=== PATIENT | male | born 1970 | race African-American/Black ===

== ENCOUNTER 2024-02-04 09:12 | Emergency (ER) | payer OTHER, SELFPAY ==
--- NOTE | ~2024-02-04 | CT_ITS ---
EXAMINATION: CT ANGIOGRAM OF THE CHEST WITH AND WITHOUT CONTRAST (CT PULMONARY ANGIOGRAM FOR PE) CLINICAL INFORMATION: Atrial fibrillation. Pulmonary embolism. COMPARISON: Chest radiograph from 02/04/2024. TECHNIQUE: Prior to contrast administration, noncontrast localization images were obtained. Subsequently, multidetector volumetric imaging was performed from the thoracic inlet to below the diaphragms following the administration of 65 mL Omnipaque 350 intravenous contrast. No contrast reaction reported. Sagittal, coronal, and MIP oblique sagittal reformatted images were obtained on the CT workstation, uploaded to PACS, and reviewed. This CT examination was performed using dose optimization techniques as appropriate, variously including the following: *Automated exposure control. *Adjustment of mA and/or kV according to patient size (this includes techniques or standardized protocols for targeted exams where dose is matched to indication/reason for exam; i.e. extremities or head). *Use of iterative reconstruction technique. DLP: 364 mGy-cm FINDINGS: QUALITY OF STUDY/CONTRAST BOLUS: Satisfactory. PULMONARY ARTERIES: No central or segmental pulmonary emboli. THORACIC AORTA: The thoracic aorta is of normal contour and caliber. No evidence of thoracic aortic aneurysm or dissection. LUNG: Mild bilateral dependent atelectasis. No focal consolidation, nodules, or masses. PLEURA: No pleural effusion or pneumothorax. MEDIASTINUM: Normal heart size. No pericardial effusion. No hilar or mediastinal lymphadenopathy. No evidence of septal bowing or right heart strain. Coronary artery calcifications: Absent. CHEST WALL/AXILLA: No axillary or internal mammary lymphadenopathy. 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 No reflux of contrast into the hepatic veins to suggest elevated right heart pressures. CT/CT angio chest PE protocol IMPRESSION: 1. No evidence of pulmonary embolism. 2. No demonstrated acute pulmonary abnormalities. VTE: negative. Electronically signed by: Juan Carlos Matthews DO 02/04/2024 02:06 PM EDT
--- NOTE | ~2024-02-04 | XR_ITS ---
EXAMINATION: XR CHEST CLINICAL INFORMATION: Near syncope. Chest pain. COMPARISON: None available. TECHNIQUE: Frontal view of the chest was obtained. FINDINGS: The lungs are adequately expanded. Mild asymmetric elevation of the right hemidiaphragm. No evidence of focal consolidation, pleural effusion, pulmonary edema, or pneumothorax. The cardiomediastinal silhouette is within normal limits. No acute osseous abnormalities. XR/XR chest 1V IMPRESSION: No radiographically evident acute pulmonary abnormalities. Electronically signed by: Juan Carlos Matthews DO 02/04/2024 12:18 PM EDT RP
--- NOTE | 2024-02-04 09:13 | ECG_ITS ---
Test Reason : near syncope Blood Pressure : / mmHG Vent. Rate : 120 BPM Atrial Rate : 000 BPM P-R Int : 000 ms QRS Dur : 070 ms QT Int : 318 ms P-R-T Axes : 000 029 010 degrees QTc Int : 449 ms Atrial fibrillation with rapid ventricular response Nonspecific T wave abnormality Abnormal ECG No previous ECGs available Referred By: Chrissie Ceballos Electronically Signed By:FRAN MILLER MD
[2024-02-04 09:19] VITALS: BP 100/58; PULSE 76; RESP 14; TEMP 36.5; O2SAT 100; BMI 32.5
[2024-02-04 09:55] LABS: MANUAL DIFF FLAG NO
[2024-02-04 09:59] LABS: Basophils Absolute Auto 0.1 X10*3/uL (0.0-0.2); Basophils Percent Auto 0.7 % (0-2); Eosinophils Absolute Auto 0.2 X10*3/uL (0.0-0.4); Eosinophils Percent Auto 2.3 % (0-4); Hematocrit 50.7 % (42.0-52.0); Hemoglobin 17.5 g/dl (14.0-18.0); Imm Gran Abs Auto 0.02 X10*3/uL (0.00-0.03); Imm Gran Pct Auto 0.2 % (0.0-0.4); Lymphocytes Absolute Auto 1.9 X10*3/uL (1.2-4.9); Lymphocytes Percent Auto 23.1 % (20-40); Mean Corpuscular HGB Conc 34.5 g/dl (31.0-36.0); Mean Corpuscular Hemoglobin 30.9 pg (27.0-33.0); Mean Corpuscular Volume 89.6 fL (80.0-98.0); Mean Platelet Volume 9.4 fL (9.4-12.4); Monocytes Absolute Auto 0.9 X10*3/uL (0.1-1.2); Monocytes Percent Auto 11.1 % (2-11); Neutrophils Absolute Auto 5.3 x10*3/uL (2.0-8.3); Neutrophils Percent Auto 62.6 % (45-73); Platelet Count 243 X10*3/uL (160-400); Red Blood Count 5.66 X10*6/uL (4.60-5.80); Red Cell Distribution Width 12.9 % (11.0-16.0); White Blood Count 8.4 X10*3/uL (4.8-10.8)
[2024-02-04 10:03] LABS: Appearance Urine Cloudy; Color Urine Yellow; Glucose Urine UA Negative (Negative); Leukocyte Esterase Urine Negative (Negative); Nitrite Urine Negative (Negative); PH 5.5 (5.0-9.0); Specific Gravity - Urine >= 1.030 (1.005-1.025); Urine Blood Negative (Negative); Urine Ketones Negative (Negative); Urine Protein Trace mg/dL (Neg-Trace)
[2024-02-04 10:06] VITALS: PULSE 126
[2024-02-04 10:07] LABS: Prothrombin Time 11.2 SEC (10.9-12.4)
--- NOTE | 2024-02-04 10:09 | PC.NURSE ---
patient a&ox3, iv inserted, labs previously drawn, pt states he has 3/10 chest discomfort as well as dizziness, ekg performed, therapist's assistant applied- pt noted to be in afib and states he has no history of afib, cxr performed, pt denies sob/nausea. neuros intact, call garcia within reach, awaiting provider will continue plan of care
[2024-02-04 10:16] LABS: Alanine Aminotransferase 51 U/L (0-40); Albumin Level 4.5 g/dL (3.5-5.0); Alkaline Phosphatase 56 U/L (39-117); Anion Gap 14 (12-20); Aspartate Amino Transferase 40 U/L (5-37); Bilirubin Total 0.6 mg/dL (0.0-1.0); Blood Urea Nitrogen 31 mg/dL (9-16); Calcium 9.8 mg/dL (8.4-10.2); Carbon Dioxide 22 mmol/L (22-29); Chloride 109 mmol/L (96-108); Creatinine Clr Calc Pharmacy 71.3; Estimated Glomerular Filt Rate 47; Glucose Random 98 mg/dL (60-115); Magnesium 2.3 mg/dL (1.6-2.6); Potassium 3.6 mmol/L (3.3-5.1); Sodium 141 mmol/L (135-145); Total Protein 7.8 g/dL (6.5-8.0)
--- NOTE | 2024-02-04 10:18 | ED.DIZZY ---
HPI - Dizziness General Chief Complaint: Dizziness Stated Complaint: fainted Time Seen by Provider: 02/04/24 09:45 Source: patient Mode of arrival: ambulatory Limitations: no limitations History of Present Illness ED Provider: CESILIA PIZARRO PA-C HPI Narrative: 53 year old male with no significant pmhx presents to the ED today as an outpatient response for evaluation of syncopal episode. Patient is currently training as an RN at [employer], reports that while seated he began feeling light headed, diaphoretic and felt his vision going black. he was able to lower himself to the ground before he lost consciousness. Outpatient response was called. Patient was transported to the ED for further evaluation. In ED, patient states his vision changes have resolved however he still feels light headed with chest discomfort/ racing heart. He denies any medical history (specifically afib) and is not currently prescribed any medications. Not on anticoagulation. He does admit that he has been experiencing these symptoms on/ off for the last few days. Denies recent travel or long car rides. Denies headache, chest pain, sob, wheezing, cough, hemoptysis, calf pain/ swelling. Related Data Previous Rx's ?Medication ?Instructions ?Recorded apixaban 5 mg tablet (Eliquis) 5 mg PO BID 30 days #60 tabs 02/04/24 metoprolol succinate 50 mg 50 mg PO DAILY 30 days #30 tabs 02/04/24 tablet,extended release 24 hr (Toprol XL) Allergies Allergy/AdvReac Type Severity Reaction Status Date / Time No Known Allergies Allergy Verified 02/04/24 09:20 Review of Systems Review of Systems: Constitutional: No fever, chills, fatigue, night sweats, weight changes ENT/Mouth: No ear pain, hearing loss, nasal congestion, sinus pain, rhinorrhea, sore throat Eyes: No eye pain, swelling, redness, vision changes, discharge Cardio: No IQBAL, orthopnea, peripheral edema, +chest discomfort, +palpitations Pulm: No SOB, cough, sputum, wheezing, dyspnea, hemoptysis GI: No nausea, vomiting, hematemesis, abdominal pain, diarrhea, constipation, hematochezia, melena : No irregular bleeding, dysuria, frequency, urgency, hesitancy, hematuria, flank pain, urinary flow changes, urinary incontinence or retention MSK: No back pain, neck pain, joint pain, myalgias Skin: No lesions, rashes Neuro: No weakness, numbness, paresthesias, LOC, dizziness, headache, +light headed Psych: No anxiety/panic, depression, SI/HI, AH/VH All other systems reviewed and are negative. ON LICENSE OF [facility] Past Medical History Attestation statement: The following information was validated with the patient. Source: old records reviewed and nursing notes reviewed Medical History Head trauma Physical Exam Vital Signs: Vital Signs: Last Vital Signs Temp 98.9 F 02/04/24 15:00 Pulse 91 02/04/24 15:00 Resp 20 02/04/24 15:00 BP 131/89 02/04/24 15:00 Pulse Ox 99 02/04/24 15:00 O2 Del Method Room Air 02/04/24 15:00 BMI result Body Mass Index 32.5 tachy to 120's, vitals otherwise wnl General: Well appearing, in no acute distress. Skin: Warm, dry, intact. No rashes or lesions. Head: Normocephalic, atraumatic. EENT: Hearing is intact b/l. Conjunctiva clear. PERRLA. Moist mucous membranes.? Neck: Supple without LAD. FROM. Trachea midline.? Cardiac: Chest wall symmetric. irregularly irregular rate/rhythm. No MRG. No JVD. Lungs: Normal respiratory effort without accessory muscle use. CTA bilaterally. Abdomen: Soft, non-tender, non-distended. No rebound tenderness or guarding. Back: No midline spinous or paraspinal tenderness. No step off deformity. Ext: Upper and lower extremities atraumatic, without tenderness, deformity, swelling or erythema. Full ROM throughout. no calf tenderness b/l. Neuro: AOx3. Normal speech. Ambulating with steady gait. Psych: Appropriate mood and affect. Responds appropriately to questions. Course Course Course Narrative: 1000 -- patient noted to be in AFib with RVR, rate of 120 beats per minute, QT 318, QTC 449. This is new onset AFib. Patient is not anticoagulated. I did reach out to on-call refrigeration operator, Dr. Rock, who after reviewing case is recommending lopressor and IV mag. Patient to be moved to main ED bed for cardiac monitoring. labs, ua, cxr ordered. 1056 -- patient transferred to main ED bed. Upon placing him on forensic investigator, patient appeared to be in normal sinus rhythm with HR in the 80's. Repeat EKG obtained showing normal sinus rhythm with a rate of 89 beats per minute, QT 336, QTC 408. Patient stating that he no longer feels light-headed and only has mild chest discomfort. Dr. Rock notified. will hold lopressor and mag as these were not yet given. Dr. Rock recommending eliquis 5mg and toprol 50mg which have been ordered. Also advising to repeat trop for delta at least 3 hours apart. CTA chest added to r/o PE. > official consult to cardiology placed. Dr. Rock will be down to evaluate. > CBC without leukocytosis or left shift. No anemia. H&H stable. Chemistry without acute electrolyte abnormality requiring intervention. Elevated renal function with BUN at 31 and creatinine 1.56. 1L IVF ordered. AST/ALT slightly elevated. Troponin 3.2. Will repeat for delta. BNP WNL at 68. CHF unlikely. TSH WNL. Urine negative for infection/ blood. 1138 -- Dr. Rock at bedside to evaluate patient. Recommending discharge home on eliquis 5mg and toprol 50mg pending delta trop negative. > CXR unremarkable. no evidence of pneumonia or fluid overload. 1450 -- Delta trop 2.8. ACS unlikely CTA chest without evidence of VTE. Patient has maintained NSR with rate between 70-80 bpms throughout ED visit. No further episodes of afib. states he is feeling well and would like to be discharged home at this time which I feel is reasonable. eliquis and toprol sent to pharmacy. advised to follow up with cardiology outpatient - referral provided. Patient has remained stable throughout ED visit today. Discussed worrisome signs and symptoms and when to return to the ED. All questions answered at this time. Patient is agreeable with disposition and stable for discharge. Medications Administered Discontinued Medications Generic Name Dose Route Start Last Admin Trade Name Freq PRN Reason Stop Dose Admin Apixaban 5 mg 02/04/24 10:55 02/04/24 11:19 Apixaban 5 Mg Tablet PO 02/04/24 10:56 5 mg ONCE ONE Administration Sodium Chloride 1,000 mls @ 999 mls/hr 02/04/24 11:00 02/04/24 13:38 Ns IV 02/04/24 12:00 Infused .Q1H1M LARY Infusion Iohexol 100 ml 02/04/24 11:46 02/04/24 11:46 Iohexol 350 Mg/Ml 100 Ml Infus..Btl IV 02/04/24 11:47 65 ml ONCE ONE Administration Metoprolol Succinate 50 mg 02/04/24 10:55 02/04/24 11:19 Metoprolol Succinate Er 50 Mg Tab.Er.24h PO 02/04/24 10:56 50 mg ONCE ONE Administration Protocol Medical Decision Making Medical Decision Making [facility] Narrative: 53 year old male with no significant pmhx presents to the ED today as an outpatient response for evaluation of syncopal episode. HR fluctuating between 120-160. bp soft at 100/51. vitals otherwise wnl. not hypoxic. he is well appearing and in NAD. exam is nonfocal. perrla. cerebellum intact. ambulating with steady gait. no nystagmus. Exam without evidence of volume overload. EKG without signs of active ischemia, shows afib with RVR. Differential diagnosis includes anemia, electrolyte abnormality, dehydration, orthostatic hypotension, vasovagal syncope, ACS, arrhythmia, vertigo. Lower suspicion for thoracic aortic dissection, cardiac effusion or tamponade, serizure, CVA, TIA, cerebellarstroke. Given the timing of pain to ED presentation, plan to send delta troponin to evaluate for NSTEMI. PERC 2 - CTA chest ordered for PE rule out. Plan for EKG, labs, UA, CXR, CTA, cardiology consult, re-evaluation. Differential Diagnosis Differential Diagnoses: The differential diagnosis associated with the presentation includes as above. Admission/Observation Consideration of admission/observation: Escalation of care including admission/observation considered admission considered on presentation Consult Healthcare Provider Management of the patient was discussed with: Spoon Maker (Dr. Rock (cardiology)) Lab Data [facility] Lab Attestation statement: I reviewed the patient's lab results. as above 02/04/24 09:47 02/04/24 09:47 Labs: Lab Results 02/04/24 02/04/24 02/04/24 Range/Units 09:07 09:47 14:04 WBC 8.4 (4.8-10.8) X10*3/uL RBC 5.66 (4.60-5.80) X10*6/uL Hgb 17.5 (14.0-18.0) g/dl Hct 50.7 (42.0-52.0) % MCV 89.6 (80.0-98.0) fL MCH 30.9 (27.0-33.0) pg MCHC 34.5 (31.0-36.0) g/dl RDW 12.9 (11.0-16.0) % Plt Count 243 (160-400) X10*3/uL MPV 9.4 (9.4-12.4) fL Immature Gran % (Auto) 0.2 (0.0-0.4) % Neut % (Auto) 62.6 (45-73) % Lymph % (Auto) 23.1 (20-40) % [place] % (Auto) 11.1 H (2-11) % Eos % (Auto) 2.3 (0-4) % Baso % (Auto) 0.7 (0-2) % Lymph # (Auto) 1.9 (1.2-4.9) X10*3/uL [place] # (Auto) 0.9 (0.1-1.2) X10*3/uL Eos # (Auto) 0.2 (0.0-0.4) X10*3/uL Baso # (Auto) 0.1 (0.0-0.2) X10*3/uL Abs Immat Gran (auto) 0.02 (0.00-0.03) X10*3/uL Absolute Neuts (auto) 5.3 (2.0-8.3) x10*3/uL Absolute Nucleated RBC 0.000 (0.0-0.012) X10*3/uL Nucleated RBC % (auto) 0.0 (0.0-0.2) /100WBC PT 11.2 (10.9-12.4) SEC INR 1.0 (0.9-1.1) Sodium 141 (135-145) mmol/L Potassium 3.6 (3.3-5.1) mmol/L Chloride 109 H (96-108) mmol/L Carbon Dioxide 22 (22-29) mmol/L Anion Gap 14 (12-20) BUN 31 H (9-16) mg/dL Creatinine 1.56 H (0.5-1.4) mg/dL Estim Creat Clear Calc 71.3 Estimated GFR 47 POC Glucose 90 (60-115) mg/dL Random Glucose 98 (60-115) mg/dL Calcium 9.8 (8.4-10.2) mg/dL Magnesium 2.3 (1.6-2.6) mg/dL Total Bilirubin 0.6 (0.0-1.0) mg/dL AST 40 H (5-37) U/L ALT 51 H (0-40) U/L Alkaline Phosphatase 56 (39-117) U/L Troponin I High Sens 3.2 2.8 (<3.5-35.0) ng/L B-Natriuretic Peptide 68 (<100) pg/mL Total Protein 7.8 (6.5-8.0) g/dL Albumin 4.5 (3.5-5.0) g/dL TSH 0.38 (0.32-4.0) uIU/mL Urine Color Yellow Urine Appearance Cloudy Urine pH 5.5 (5.0-9.0) Ur Specific [place] >= 1.030 H (1.005-1.025) Urine Protein Trace (Neg-Trace) mg/dL Urine Glucose (UA) Negative (Negative) mg/dL Urine Ketones Negative (Negative) mg/dL Urine Blood Negative (Negative) Urine Nitrite Negative (Negative) Ur Leukocyte Esterase Negative (Negative) Independent Interpretation I performed an independent interpretation of an: EKG, Plain X-Ray and CT Scan Interpretation: EKG showing AFib with RVR at a rate of 120 bpm, QT 318, QTC 449, no acute ischemic changes or ST elevations. CXR without infiltrate or consolidation, agree with radiologist's interpretation. CTA chest without filling defect, agree with radiologist's interpretation. Radiology Impression Discussion of test interpretation with radiology: I have reviewed the radiologist's reading. Radiologist Impression: EXAMINATION: CT ANGIOGRAM OF THE CHEST WITH AND WITHOUT CONTRAST (CT PULMONARY ANGIOGRAM FOR PE) CLINICAL INFORMATION: Atrial fibrillation. Pulmonary embolism. COMPARISON: Chest radiograph from 02/04/2024. TECHNIQUE: Prior to contrast administration, noncontrast localization images were obtained. Subsequently, multidetector volumetric imaging was performed from the thoracic inlet to below the diaphragms following the administration of 65 mL Omnipaque 350 intravenous contrast. No contrast reaction reported. Sagittal, coronal, and MIP oblique sagittal reformatted images were obtained on the CT workstation, uploaded to PACS, and reviewed. This CT examination was performed using dose optimization techniques as appropriate, variously including the following: *Automated exposure control. *Adjustment of mA and/or kV according to patient size (this includes techniques or standardized protocols for targeted exams where dose is matched to indication/reason for exam; i.e. extremities or head). *Use of iterative reconstruction technique. DLP: 364 mGy-cm FINDINGS: QUALITY OF STUDY/CONTRAST BOLUS: Satisfactory. PULMONARY ARTERIES: No central or segmental pulmonary emboli. THORACIC AORTA: The thoracic aorta is of normal contour and caliber. No evidence of thoracic aortic aneurysm or dissection. LUNG: Mild bilateral dependent atelectasis. No focal consolidation, nodules, or masses. PLEURA: No pleural effusion or pneumothorax. MEDIASTINUM: Normal heart size. No pericardial effusion. No hilar or mediastinal lymphadenopathy. No evidence of septal bowing or right heart strain. Coronary artery calcifications: Absent. CHEST WALL/AXILLA: No axillary or internal mammary lymphadenopathy. 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 No reflux of contrast into the hepatic veins to suggest elevated right heart pressures. CT/CT angio chest PE protocol IMPRESSION: 1. No evidence of pulmonary embolism. 2. No demonstrated acute pulmonary abnormalities. VTE: negative. Electronically signed by: Juan Carlos Matthews DO 02/04/2024 02:06 PM EDT EXAMINATION: XR CHEST CLINICAL INFORMATION: Near syncope. Chest pain. COMPARISON: None available. TECHNIQUE: Frontal view of the chest was obtained. FINDINGS: The lungs are adequately expanded. Mild asymmetric elevation of the right hemidiaphragm. No evidence of focal consolidation, pleural effusion, pulmonary edema, or pneumothorax. The cardiomediastinal silhouette is within normal limits. No acute osseous abnormalities. XR/XR chest 1V IMPRESSION: No radiographically evident acute pulmonary abnormalities. Electronically signed by: Juan Carlos Matthews DO 02/04/2024 12:18 PM EDT Prescription Management I considered prescription management with: Other (toprol, eliquis) Social Determinants Patient?s care significantly limited by Social Determinants of Health including: Other Social Determinant of Health Critical Care Time Critical Care Time Critical Care Time: Yes Total Critical Care Time: 35 Attestation: Critical care time in the amount of 35 minutes has been provided to the patient in terms of direct patient care, frequent reevaluation, consultation with cardiology, review and interpretation of medical data and results, and management of potentially life-threatening conditions. This is all outside of any medical procedures. Discharge Plan Discharge Clinical Impression: Atrial fibrillation with RVR Patient Disposition: Home, Self-Care Instructions: A-fib (Atrial Fibrillation) (ED), Blood Thinners (ED) Additional Instructions: You were evaluated in the ED today following a syncopal episode. Your EKG showed atrial fibrillation which is an arrhythmia of your heart. This resolved without interventions in the ED today. You were evaluated by Cardiology. They recommend starting you on the following medications daily: Toprol 50 mg daily Eliquis (blood thinner) 5mg twice daily These have been sent to your pharmacy. Your blood work was otherwise reassuring. Your chest xray and chest CT area normal and do not show signs of infection or clot. Please follow up with cardiology out patient. You have been provided a referral. Call them to schedule an appointment. they will not call you. Return with new or worsening symptoms. In the case of an emergency call 911. Prescriptions: New Eliquis 5 mg tablet 5 mg PO BID 30 Days Qty: 60 0RF metoprolol succinate [Toprol XL] 50 mg tablet extended release 24 hr 50 mg PO DAILY 30 Days Qty: 30 0RF Referrals: Jorge Rock MD [Physician] - 3 days (new onset afib) Stand Alone Forms: Work/School Release Interventions: ED Discharge Assessment Last Done: 02/04/24 15:00 Discharge Date/Time: 02/04/24 15:01 Print Language: Upper Sorbian
[2024-02-04 10:21] LABS: B Type Natriuretic Peptide 68 pg/mL (<100)
[2024-02-04 10:25] LABS: Troponin-I High Sensitivity 3.2 ng/L (<3.5-35.0)
--- NOTE | 2024-02-04 10:38 | ECG_ITS ---
Test Reason : convert to NSR Blood Pressure : / mmHG Vent. Rate : 089 BPM Atrial Rate : 089 BPM P-R Int : 160 ms QRS Dur : 068 ms QT Int : 336 ms P-R-T Axes : 026 027 002 degrees QTc Int : 408 ms Normal sinus rhythm Nonspecific ST and T wave abnormality Abnormal ECG When compared with ECG of 04-FEB-2024 09:25, Sinus rhythm has replaced Atrial fibrillation Referred By: Gloria Medel Electronically Signed By:FRAN MILLER MD
--- NOTE | 2024-02-04 10:48 | PC.NURSE ---
This RN resumed care of pt at this time. Pt placed on monitor HR in the 80's with a NSR. Provider/cardiology made aware, repeat EKG done.
[2024-02-04 11:12] LABS: Glucose, Whole Blood 90 mg/dL (60-115)
[2024-02-04 11:19] VITALS: BP 128/82; PULSE 88
[2024-02-04] MEDS: 0.9 % Sodium Chloride 1,000 ML 999 ML IV (11:19)
[2024-02-04] MEDS: Metoprolol Succinate ER 50 MG TAB.ER.24H PO (11:19)
[2024-02-04] MEDS: Apixaban 5 MG TABLET PO (11:19)
[2024-02-04 11:31] LABS: Thyroid Stimulating Hormone 0.38 uIU/mL (0.32-4.0)
[2024-02-04] MEDS: iohexoL 350 MG/ML 100 ML INFUS..BTL IV (11:46)
[2024-02-04 12:08] VITALS: BP 116/69; PULSE 75; RESP 19; TEMP 36.6; O2SAT 99
--- NOTE | 2024-02-04 12:56 | P.CONCA_ITS ---
History of Present Illness History of Present Illness Date of Service: 02/04/24 Requesting physician: Gloria Medel Consult reason: atrial fibrillation Chief complaint: fainted Narrative: I was consulted to see Chapo in cardiology consultation today for atrial fibrillation. 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 He said he was having a lot of recent personal stress related to his situation and also has been using a lot of energy drinks, works a lot, 14 day 12 hour shifts. Patient said he was not working last night but came to the hospital to do an outpatient ACLS course and while doing the course and doing CPR practice he developed lightheadedness and felt like he was going to pass out. He was therefore referred to the emergency room. On further questioning he said he has since last night he has been having symptoms of palpitation which she thought was related to lot of overt thinking and stress. Patient has never had these symptoms in the past. He came to the emergency room was having some minor chest pain. On presentation was noted to be in atrial fibrillation rapid ventricular response. He came to the outpatient ER unit and then was subsequently transferred to the ER because of rapid heart rate and for starting IV medications. By time he was transferred he said he started to calmed down and start thinking better thoughts any converted back to sinus rhythm. He has never had atrial fibrillation in the past. Denies any history of hypertension, diabetes. Denies any prior history of congestive heart failure or cardiomyopathy or vascular disease. No prior history of stroke. He said he feels embarrassed that he is currently in the hospital due to his personal situation. He continued to have some chest pain post-conversion in sinus rhythm. EKG post conversion does not show any acute ischemic ST changes. His lightheadedness and palpitations have improved. Review of Systems 2 Constitutional: Constitutional: Reports no additional constitutional complaints Eyes: Eyes: Reports no additional eye complaints Cardiovascular: Cardiovascular: Reports chest pain, Denies leg edema, Reports lightheadedness, Denies Loss of Consciousness, Reports palpitations, Denies dyspnea and Denies dyspnea on exertion Respiratory: Respiratory: Denies dyspnea and Denies dyspnea on exertion Gastrointestinal: Gastrointestinal: Reports no additional gastrointestinal complaints Musculoskeletal: Musculoskeletal: Reports no additional musculoskeletal complaints Integumentary/Breasts: Skin/Breast: Reports system reviewed and no additional complaints, except as docu Neurologic: Reports system reviewed and no additional complaints, except as documented Psychiatric: Psychiatric: Reports other (Increased stress) Endocrine: Endocrine: Reports palpitations Hematologic/Lymphatic: Hematologic/Lymphatic: Reports no additional hematologic/lymphatic complaints Allergic/Immunologic: Allergic/Immunologic: Reports no additional allergic/immunologic complaints PMFSH Past Medical History Medical History Head trauma Social History Social History Smoked in Last 30 Days: No Use of substances other than those prescribed or required for medical reasons: No Advance Directives: No Advance Directives Information Provided: No Meds Allergies Allergy/AdvReac Type Severity Reaction Status Date / Time No Known Allergies Allergy Verified 02/04/24 09:20 Physical Exam 2 Vital Signs: Vital Signs: Last Vital Signs Temp 97.9 F 02/04/24 12:08 Pulse 75 02/04/24 12:08 Resp 19 02/04/24 12:08 BP 116/69 02/04/24 12:08 Pulse Ox 99 02/04/24 12:08 O2 Del Method Room Air 02/04/24 12:08 BMI result Body Mass Index 32.5 Const: General: cooperative, comfortable, no acute distress, well developed, alert, awake and Physically active Nutritional Appearance: average body habitus and well nourished Orientation/consciousness: patient oriented x3 Limitations: no limitations HEENT: Head: Yes normocephalic and Yes atraumatic Neck: Neck: Yes trachea midline, Yes supple and Yes no JVD Resp: Effort & Inspection: normal respiratory effort Auscultation: clear to auscultation bilaterally Cardio: Jugular venous distension: no JVD Palpation: normal PMI Rate: r egular rate Rhythm: regular rhythm Heart sounds: S1 normal heart sound present, S2 normal heart sound present, no click, no gallops and no murmurs GI: Auscultation: normal bowel sounds Skin: General skin exam: no rashes or lesions noted Neuro: General: patient oriented x3 and no focal motor deficits Extrem: General: Yes no clubbing, cyanosis or edema Psych: Appearance: grossly normal Objective Labs and Meds 02/04/24 09:47 02/04/24 09:47 Lab results: Laboratory Results - last 24 hr 02/04/24 02/04/24 09:07 09:47 WBC 8.4 RBC 5.66 Hgb 17.5 Hct 50.7 MCV 89.6 MCH 30.9 MCHC 34.5 RDW 12.9 Plt Count 243 MPV 9.4 Immature Gran % (Auto) 0.2 Neut % (Auto) 62.6 Lymph % (Auto) 23.1 [place] % (Auto) 11.1 H Eos % (Auto) 2.3 Baso % (Auto) 0.7 Lymph # (Auto) 1.9 [place] # (Auto) 0.9 Eos # (Auto) 0.2 Baso # (Auto) 0.1 Abs Immat Gran (auto) 0.02 Absolute Neuts (auto) 5.3 Absolute Nucleated RBC 0.000 Nucleated RBC % (auto) 0.0 PT 11.2 INR 1.0 Sodium 141 Potassium 3.6 Chloride 109 H Carbon Dioxide 22 Anion Gap 14 BUN 31 H Creatinine 1.56 H Estim Creat Clear Calc 71.3 Estimated GFR 47 POC Glucose 90 Random Glucose 98 Calcium 9.8 Magnesium 2.3 Total Bilirubin 0.6 AST 40 H ALT 51 H Alkaline Phosphatase 56 Troponin I High Sens 3.2 B-Natriuretic Peptide 68 Total Protein 7.8 Albumin 4.5 TSH 0.38 Urine Color Yellow Urine Appearance Cloudy Urine pH 5.5 Ur Specific [place] >= 1.030 H Urine Protein Trace Urine Glucose (UA) Negative Urine Ketones Negative Urine Blood Negative Urine Nitrite Negative Ur Leukocyte Esterase Negative Imaging Radiologist's impression: Impressions Chest X-Ray 02/04/24 09:13 IMPRESSION: No radiographically evident acute pulmonary abnormalities. Electronically signed by: Juan Carlos Matthews DO 02/04/2024 12:18 PM EDT Assessment and Plan (1) Paroxysmal atrial fibrillation: Status: Acute New onset symptomatic paroxysmal atrial fibrillation this middle-aged man with no obvious other risk factors most likely induced by increased personal stress and use of energy drinks. I discussed to participate in stress mitigation strategies and avoid using caffeine and energy drinks as well as alcohol. Meanwhile given that he had about 12 hours more of atrial fibrillation give him Eliquis 5 mg b.i.d. for about a month and also start him on Toprol-XL 50 mg daily. Rationale for medication was discussed. Management of atrial fibrillation was discussed. He will require outpatient workup including a Holter monitor, echocardiogram and evaluation for sleep apnea.. This was discussed with him. Because of his atypical chest pain I would repeat another troponin 3 hours. If this is normal again I would be comfortable discharging him home and will follow him as outpatient. Thank you for allowing me to partake in his care Procedures Date of Service Date of Service: 02/04/24
[2024-02-04 14:35] LABS: Troponin-I High Sensitivity 2.8 ng/L (<3.5-35.0)
[2024-02-04 15:00] VITALS: BP 131/89; PULSE 91; RESP 20; TEMP 37.2; O2SAT 99
== END 2024-02-04 15:01 | disposition home or self-care (01) ==
PROVIDERS: Physician Assistant; Physician Assistant Medical; Emergency Provider Emergency Medicine
DX: I48.0 Paroxysmal atrial fibrillation (principal); R42 Dizziness and giddiness
CPT/HCPCS: 36415; 71045; 71275; 80053; 81003; 82947; 83735; 83880; 84443; 84484; 85025; 85610; 93005; 96360; 96361; 99285; Q9967

== ENCOUNTER → 2024-02-04 09:23 | Outpatient (BNV) | payer SELFPAY | PROVIDERS: Emergency Provider Emergency Medicine; Visit Provider Internal Medicine Cardiovascular Disease | DX: I48.0 Paroxysmal atrial fibrillation (principal); R94.31 Abnormal electrocardiogram [ECG] [EKG] | CPT/HCPCS: 93010; 99282 ==